=== PATIENT | female | born 1980 | race Caucasian/White ===

== ENCOUNTER 2023-01-13 04:21 | Day surgery (SDC) | payer BC, OTHER ==
[2023-01-11 12:43] VITALS: BMI 36.9
[2023-01-13] MEDS ORDERED: BUPIVACAINE HCL/PF 0.5% (5MG/ML) 10 ML VIAL ONE (07:12)
[2023-01-13] MEDS ORDERED: MIDAZOLAM HCL 2 MG/2 ML SINGLE DOSE VIAL ONE (07:37)
[2023-01-13] MEDS ORDERED: KETOROLAC TROMETHAMINE 30 MG/1 ML VIAL ONE ×2 (07:37→08:05)
[2023-01-13] MEDS ORDERED: PROPOFOL 40 ML ONE (07:37)
[2023-01-13] MEDS ORDERED: LIDOCAINE HCL 1%, 10 MG/ML (20ML VIAL) INF ONE (07:49)
[2023-01-13] MEDS ORDERED: PROPOFOL 20 ML ONE (07:54)
[2023-01-13] MEDS ORDERED: ONDANSETRON 4 MG/2 ML VIAL ONE (08:05)
[2023-01-13] MEDS ORDERED: ONDANSETRON 4 MG/2 ML VIAL IVPUSH PRN (08:44)
[2023-01-13] MEDS ORDERED: LACTATED RINGERS SOLUTION 1,000 ML IV SCH (08:45)
[2023-01-13] MEDS ORDERED: METOCLOPRAMIDE HCL INJECTION 10 MG/2 ML VIAL IVPUSH ONE (08:46)
[2023-01-13] MEDS ORDERED: DEXAMETHASONE SOD PHOSPHATE 4 MG/1 ML VIAL IM ONE (08:46)
[2023-01-13 10:06] VITALS: RESP 20; TEMP 97.8
[2023-01-13 12:00] VITALS: BP 108/60; PULSE 60
== END 2023-01-13 11:50 | disposition home or self-care (01) ==
LOC: JASU-SURG 04:21
PROVIDERS: ATTEND Podiatrist Foot Surgery
PROC: 0J5Q0ZZ Destruction of Right Foot Subcutaneous Tissue and Fascia, Open Approach (ICD-10-PCS; principal; 2023-01-13 07:30)
DX: M72.2 Plantar fascial fibromatosis (principal)
CPT/HCPCS: 81025; 94760